=== PATIENT | female | born 1975 | race Hispanic/Latino ===

== ENCOUNTER 2022-03-01 10:16 | Emergency (ER) | payer BC ==
[2022-03-01] MEDS ORDERED: Dexamethasone 10 MG/ML VIAL ONE (12:06)
[2022-03-01] MEDS ORDERED: Ketorolac Tromethamine 30 MG/ML VIAL ONE (12:06)
== END 2022-03-01 12:10 | disposition home or self-care (01) ==
LOC: CSHERS 10:16
DX: M25.562 Pain in left knee (principal); I10 Essential (primary) hypertension; E66.9 Obesity, unspecified
CPT/HCPCS: 96372; 99283; J1100; J1885

== ENCOUNTER 2024-03-09 18:15 | Emergency (ER) | payer BC ==
[2024-03-09] MEDS ORDERED: Ketorolac Tromethamine 30 MG (1 mL) VIAL ONE (19:27)
[2024-03-09 20:05] LABS: #Basophils 0.03 10x3/uL (0.0-0.2); #Eosinphils 0.01 10x3/uL (0.0-0.5); #Monocytes 0.29 10x3/uL (0.0-1.1); #Neutrophils 12.83 10x3/uL (1.5-8.4); %Basophils 0.2 % (0.0-2.0); %Eosinophils 0.1 % (0.0-6.0); %Lymphocytes 11.9 % (18.0-47.0); %Monocytes 1.9 % (0.0-10.0); %Neutrophils 85.5 % (40.0-75.0); Hematocrit 39.9 % (34.9-44.5); Hemoglobin 13.4 g/dL (12.0-15.5); Mean Corpuscular HGB CONC 33.6 g/dL (32.0-36.0); Mean Corpuscular Hemoglobin 29.3 pg (27.0-33.0); Mean Corpuscular Volume 87.1 fL (81.6-98.3); Mean Platelet Volume 10.2 fL (7.4-10.4); Platelet Count 350 10x3/uL (150-450); RBC Distribution Width 14.1 % (11.5-14.5); Red Blood Cell (RBC) Count 4.58 10x6/uL (3.90-5.03)
[2024-03-09 20:18] LABS: Influenza A by NAA Not Detected (NotDetected); Influenza B by NAA Not Detected (NotDetected); SARS-CoV-2 NAA Rapid Test Not Detected (NotDetected)
[2024-03-09 20:21] LABS: ALT (SGPT) 24 U/L (8-55); AST (SGOT) 18 U/L (5-34); Albumin 3.6 g/dL (3.5-5.0); Alkaline Phosphatase 111 U/L (40-110); Anion Gap 13 mmol/L (10-20); BUN (Urea Nitrogen) 14 mg/dL (7.0-18.7); Bilirubin, Total 0.5 mg/dL (0.2-1.2); Calc. Creatinine Clearance 0 mL/min (70-130); Carbon Dioxide 22 mmol/L (22-29); Chloride 108 mmol/L (98-107); Estimated GFR 106; Glucose 131 mg/dL (70-105); Potassium 4.3 mmol/L (3.5-5.1); Protein, Total 7.6 g/dL (6.0-8.3); Sodium 139 mmol/L (136-145)
[2024-03-09 20:27] LABS: Troponin I Less than 0.010 ng/mL (< 0.028)
== END 2024-03-09 21:15 | disposition home or self-care (01) ==
LOC: CSHERS 18:15
DX: J18.9 Pneumonia, unspecified organism (principal); I10 Essential (primary) hypertension
CPT/HCPCS: 71045; 80053; 83605; 83880; 84484; 85025; 93005; 96374; J1885